=== PATIENT | male | born 2000 | race Caucasian/White ===

== ENCOUNTER 2025-03-24 19:09 | Emergency (ER) | payer BC ==
[2025-03-24] MEDS ORDERED: Ketorolac Tromethamine 30 MG (1 mL) VIAL ONE (19:51)
== END 2025-03-24 20:44 | disposition home or self-care (01) ==
LOC: ERS 19:09
DX: S46.001A Unspecified injury of muscle(s) and tendon(s) of the rotator cuff of right shoulder, initial encounter (principal); F17.290 Nicotine dependence, other tobacco product, uncomplicated; X58.XXXA Exposure to other specified factors, initial encounter
CPT/HCPCS: 96372; 99283; J1885